=== PATIENT | female | born 1970 | race Two or more races ===

== ENCOUNTER 2019-01-17 16:53 | Emergency (ER) | payer OTHER ==
[~2019-01-17] VITALS: Ht 157.5 cm; Wt 59.0 kg
[~2019-01-17 16:53] MED LIST: BENADRYL50 MG PO
== END 2019-01-17 18:17 | disposition home or self-care (01) ==
LOC: ER 16:53
DX: S81.821A Laceration with foreign body, right lower leg, initial encounter (principal); W45.8XXA Other foreign body or object entering through skin, initial encounter; Y93.89 Activity, other specified; Y92.098 Other place in other non-institutional residence as the place of occurrence of the external cause; Y99.8 Other external cause status

== ENCOUNTER 2019-01-27 12:20 | Emergency (ER) | payer OTHER ==
[~2019-01-27] VITALS: Ht 157.5 cm; Wt 59.0 kg
== END 2019-01-27 15:31 | disposition home or self-care (01) ==
LOC: ER 12:20
DX: Z48.02 Encounter for removal of sutures (principal)